=== PATIENT | female | born 1950 | race Caucasian/White ===

== ENCOUNTER → 2016-04-14 | Outpatient (CLI) | payer BC ==
--- NOTE | 2016-04-17 09:56 | MM ---
Reason for exam: screening (asymptomatic). Last mammogram was performed 1 year ago. History: Patient is postmenopausal and has history of other cancer at age 35. Benign excisional biopsy of the right breast. Taking estrogen for 10 years 3 months beginning at age 49. Physical Findings: A clinical breast exam by your physician is recommended on an annual basis and results should be correlated with mammographic findings. MG Screening Mammo w CAD Bilateral CC and MLO view(s) were taken. Prior study comparison: April 12, 2015, bilateral MG screening mammo w CAD. February 16, 2014, bilateral MG diagnostic mammo w CAD CLAUDIA. The breast tissue is heterogeneously dense. This may lower the sensitivity of mammography. There is chronic nodularity bilaterally. There is no discrete abnormality. No significant changes when compared with prior studies. ASSESSMENT: Benign, BI-RAD 2 RECOMMENDATION: Routine screening mammogram of both breasts in 1 year. Manage patient on a clinical basis. Ultrasound if felt to be indicated clinically.
== END | disposition home or self-care (01) ==
LOC: RADMAMWWP 09:41
PROVIDERS: ATTEND Internal Medicine
DX: Z12.31 Encounter for screening mammogram for malignant neoplasm of breast (principal)

== ENCOUNTER → 2016-12-13 | Outpatient (CLI) | payer BC ==
--- NOTE | 2016-12-13 09:37 | XR ---
EXAMINATION TYPE: XR chest 2V DATE OF EXAM: 12/13/2016 COMPARISON: NONE TECHNIQUE: PA and lateral views submitted. HISTORY: Pain FINDINGS: The lungs are clear and there is no pneumothorax, pleural effusion, or focal pneumonia. There is mild prominence of the region of the ascending aorta. No overt failure. Arthropathy of the s houlders. Hypertrophic and degenerative change of the spine. IMPRESSION: 1. No acute process. Mild prominence of the region of the ascending aorta, correlate with CT scan to assess for aneurysm.
--- NOTE | 2016-12-13 12:46 | ECHOF ---
Referral Reason:R07.9 chest pain MEASUREMENTS -------- HEIGHT: 165.1 cm WEIGHT: 97.1 kg BP: 121/82 RVIDd: 2.7 cm (< 3.3) IVSd: 1.2 cm (0.6 - 1.1) LVIDd: 5.2 cm (3.9 - 5.3) LVPWd: 1.2 cm (0.6 - 1.1) IVSs: 1.3 cm LVIDs: 3.9 cm LVPWs: 1.7 cm LAESV Index (A-L): 19.74 ml/m Ao Diam: 3.0 cm (2.0 - 3.7) AV Cusp: 1.7 cm (1.5 - 2.6) LA Diam: 3.9 cm (2.7 - 3.8) MV EXCURSION: 15.965 mm (> 18.000) MV EF SLOPE: 65 mm/s (70 - 150) EPSS: 0.3 cm MV E Pérez: 0.84 m/s MV DecT: 320 ms MV A Pérez: 0.97 m/s MV E/A Ratio: 0.87 RAP: 5.00 mmHg RVSP: 15.39 mmHg FINDINGS -------- Sinus rhythm. This was a technically adequate study. The left ventricular size is normal. There is mild concentric left ventricular hypertrophy. Overall left ventricular systolic function is normal with, an EF between 55 - 60 %. The right ventricle is normal in size and function. Normal LA size by volume 22+/-6 ml/m2. The right atrium is normal in size. The aortic valve is trileaflet, and appears structurally normal. No aortic stenosis or regurgitation. The mitral valve leaflets are mildly thickened. There is trace mitral regurgitation. Trace tricuspid regurgitation present. Right ventricular systolic pressure is normal at < 35 mmHg. There is no evidence of pulmonary hypertension. The pulmonic valve is normal. The aortic root size is normal. Normal inferior vena cava with normal inspiratory collapse consistent with estimated right atrial pressure of 5 mmHg. The pericardium is normal. There is no pericardial effusion. CONCLUSIONS -------- 1. Sinus rhythm. 2. Trace tricuspid regurgitation present. 3. Right ventricular systolic pressure is normal at < 35 mmHg. 4. There is no evidence of pulmonary hypertension. 5. The aortic root size is normal. 6. There is no pericardial effusion. 7. This was a technically adequate study. 8. The left ventricular size is normal. 9. There is mild concentric left ventricular hypertrophy. 10. Overall left ventricular systolic function is normal with, an EF between 55 - 60 %. 11. Normal LA size by volume 22+/-6 ml/m2. 12. The aortic valve is trileaflet, and appears structurally normal. No aortic stenosis or regurgitation. 13. The mitral valve leaflets are mildly thickened. 14. There is trace mitral regurgitation. BOARD HANDLER: Messi Brody RDCS
== END | disposition home or self-care (01) ==
LOC: RADECHMAIN 08:36
PROVIDERS: ATTEND Internal Medicine
DX: R07.9 Chest pain, unspecified (principal); I08.1 Rheumatic disorders of both mitral and tricuspid valves
CPT/HCPCS: 71020; 93306

== ENCOUNTER → 2017-04-30 | Outpatient (CLI) | payer BC ==
--- NOTE | 2017-05-01 11:41 | MM ---
Reason for exam: screening (asymptomatic). Last mammogram was performed 1 year and 1 month ago. History: Patient is postmenopausal and has history of other cancer at age 35. Benign excisional biopsy of the right breast. Taking estrogen for 10 years 3 months beginning at age 49. Physical Findings: A clinical breast exam by your physician is recommended on an annual basis and results should be correlated with mammographic findings. MG Screening Mammo w CAD Bilateral CC and MLO view(s) were taken. Prior study comparison: April 14, 2016, bilateral MG screening mammo w CAD. April 12, 2015, bilateral MG screening mammo w CAD. There are scattered fibroglandular densities. Stable benign calcifications. There is no discrete abnormality. No significant changes when compared with prior studies. ASSESSMENT: Benign, BI-RAD 2 RECOMMENDATION: Routine screening mammogram of both breasts in 1 year.
== END | disposition home or self-care (01) ==
LOC: RADMAMWWP 07:39
PROVIDERS: ATTEND Internal Medicine
DX: Z12.31 Encounter for screening mammogram for malignant neoplasm of breast (principal)
CPT/HCPCS: 77067

== ENCOUNTER → 2018-05-31 | Outpatient (CLI) | payer BC ==
--- NOTE | 2018-06-04 08:59 | MM ---
Reason for exam: screening (asymptomatic). Last mammogram was performed 1 year and 1 month ago. History: Patient is postmenopausal and has history of other cancer at age 35. Benign excisional biopsy of the right breast. Taking estrogen for 10 years 3 months beginning at age 49. Physical Findings: A clinical breast exam by your physician is recommended on an annual basis and results should be correlated with mammographic findings. MG 3D Screening Mammo W/Cad Bilateral CC and MLO view(s) were taken. Prior study comparison: April 30, 2017, bilateral MG screening mammo w CAD. April 14, 2016, bilateral MG screening mammo w CAD. The breast tissue is heterogeneously dense. This may lower the sensitivity of mammography. Regional punctate calcifications redemonstrated right breast. No significant changes when compared with prior studies. ASSESSMENT: Benign, BI-RAD 2 RECOMMENDATION: Routine screening mammogram of both breasts in 1 year.
== END | disposition home or self-care (01) ==
LOC: RADMAMWWP 10:31
PROVIDERS: ATTEND Internal Medicine
DX: Z12.31 Encounter for screening mammogram for malignant neoplasm of breast (principal)
CPT/HCPCS: 77063; 77067

== ENCOUNTER → 2019-11-28 | Outpatient (CLI) | payer MEDICARE ==
[2019-11-28 14:40] LABS: HCT 40.8 % (34.0-46.0); HGB 13.2 gm/dL (11.4-16.0); MCH 28.9 pg (25.0-35.0); MCHC 32.4 g/dL (31.0-37.0); MCV 89.3 fL (80.0-100.0); Mean Platelet Volume 6.6; Platelet Count 293 k/uL (150-450); RBC 4.57 m/uL (3.80-5.40); RDW 13.5 % (11.5-15.5); WBC 6.3 k/uL (3.8-10.6)
[2019-11-28 14:43] LABS: ALT 7 U/L (4-34); AST 22 U/L (14-36); African American GFR (CKD) >90 (>60 ml/min/1.73 sqM); Albumin 4.3 g/dL (3.5-5.0); Alkaline Phosphatase 97 U/L (38-126); Anion Gap 7 mmol/L; Blood Urea Nitrogen 19 mg/dL (7-17); Calcium 9.5 mg/dL (8.4-10.2); Carbon Dioxide 27 mmol/L (22-30); Chloride 107 mmol/L (98-107); Glucose 94 mg/dL (74-99); Non-African American GFR(CKD) >90 (>60 ml/min/1.73 sqM); Potassium 4.6 mmol/L (3.5-5.1); Sodium 141 mmol/L (137-145); Total Bilirubin 0.4 mg/dL (0.2-1.3); Total Protein 6.7 g/dL (6.3-8.2)
[2019-11-28 14:51] LABS: Amorphous Sediment,Urine Few /hpf; Appearance,Urine Cloudy (Clear); Bacteria,Urine Occasional /hpf; Bilirubin,Urine Negative (Negative); Blood,Urine Negative (Negative); Color,Urine Yellow; Glucose,Urine (UA) Negative (Negative); Ketones,Urine Negative (Negative); Leukocyte Esterase,Urine Trace (Negative); Mucus,Urine Many /hpf; Nitrite,Urine Negative (Negative); Protein,Urine Trace (Negative); Specific Gravity,Urine 1.032 (1.001-1.035); Squamous Epithelial Cell,Urine 22 /hpf (0-4); Urobilinogen,Urine <2.0 mg/dL (<2.0); WBC,Urine 16 /hpf (0-5)
[2019-11-28 15:05] LABS: INR 0.9 (<1.2); Partial Thromboplastin Time 23.4 sec (22.0-30.0); Prothrombin Time 9.6 sec (9.0-12.0)
== END | disposition home or self-care (01) ==
LOC: LABPAT 13:38
PROVIDERS: ATTEND Orthopaedic Surgery Sports Medicine
DX: Z01.818 Encounter for other preprocedural examination (principal); M19.079 Primary osteoarthritis, unspecified ankle and foot; Z79.01 Long term (current) use of anticoagulants; Z01.812 Encounter for preprocedural laboratory examination
CPT/HCPCS: 36415; 80053; 81001; 85027; 85610; 85730; 87070

== ENCOUNTER 2019-12-11 07:36 | Observation (INO) | payer MEDICARE ==
[2019-12-10 08:45] VITALS: BMI 33.1
[~2019-12-11 07:36] MED LIST: ACETAMINOPHEN TAB 500 MG TAB PO ONE; GABAPENTIN 300 MG CAP PO ONE; HYDROmorphone 0.5 MG/0.5 ML SYRINGE IVP PRN; LACTATED RINGERS 1,000 ML IV SCH; LIDOCAINE 1% (10MG/ML) FOR IV START INTRADERMA PRN; MELOXICAM 7.5 MG TAB PO ONE; ONDANSETRON 4 MG/2 ML VIAL IVP ONE; ONDANSETRON 4 MG/2 ML VIAL IVP PRN; TRANEXAMIC ACID 1,000 MG in SODIUM CHLORIDE 0.9% 100 ML IVPB ONE; VANCOMYCIN 1,250 MG in SODIUM CHLORIDE 0.9% 250 ML IVPB ONE
[2019-12-11] MEDS ORDERED: fentaNYL (PF) 50 MCG/ML 2 ML AMP IVP ONE (08:40)
[2019-12-11] MEDS ORDERED: MIDAZOLAM 2 MG/2 ML VIAL IVP ONE (08:40)
[2019-12-11] MEDS ORDERED: ONDANSETRON 4 MG/2 ML VIAL IVP ONE (09:05)
[2019-12-11] MEDS ORDERED: DEXAMETHASONE SOD PHOSPHATE 10 MG/ML 1 ML VIAL IV ONE (09:06)
--- NOTE | 2019-12-11 09:07 | P.ANPRN ---
Procedure Note - Anesthesia - Nerve Block Performed Right Adductor Canal Infusion Time Out Performed: Yes ([id number]) Date of Procedure: 12/11/19 Procedure Start Time: 08:36 Procedure Stop Time: 08:42 Location of Patient: PreOp Indication: Acute Post-Operative Pain, Requested by Surgeon Specifically requested for management of pain by DrGanesh: Carlos Manuel Wilson Sedation Type: Sedate with meaningful contact maintained Preparation: Sterile Prep Position: Supine Catheter Depth at Skin (cm): 10 Catheter: Indwelling Needle Types: Pajunk Needle Gauge: 21 Ultrasound used to visualize needle placement: Yes Ultrasound used to observe medication spread: Yes Injectate: 0.5% Ropivacaine (see comment for volume) (20cc) Blood Aspirated: No Pain Paresthesia on Injection Noted: No Resistance on Injection: Normal Image Stored and Saved: Yes Events: Uneventful and Well Tolerated
[2019-12-11] MEDS ORDERED: PROPOFOL 10 MG/ML 20 ML VIAL IV ONE (09:20)
[2019-12-11] MEDS ORDERED: SODIUM CHLORIDE 0.9% 100 ML BAG ONE (09:20)
[2019-12-11] MEDS ORDERED: MIDAZOLAM 2 MG/2 ML VIAL ONE (09:20)
[2019-12-11] MEDS ORDERED: TRANEXAMIC ACID 1,000 MG/10 ML VIAL ONE (09:20)
[2019-12-11] MEDS ORDERED: fentaNYL (PF) 50 MCG/ML 2 ML AMP ONE (09:20)
[2019-12-11] MEDS ORDERED: ceFAZolin 3,000 MG in SODIUM CHLORIDE 0.9% IRRIGATIO 3,000 ML IRRIGATION ONE (10:01)
[2019-12-11] MEDS: ROPIVACAINE 246.25 MG, EPINEPHrine 0.5 MG, KETOROLAC 30 MG, cloNIDine HCL/PF 80 MCG, WA... MISCELLANE ONE ×10 (10:16→10:40)
[2019-12-11] MEDS ORDERED: ROPIVACAINE 0.2%-NS ON-Q PUMP 1,090 MG, EMPTY PAIN BALL 1 EACH MISCELLANE PRN (11:27)
[2019-12-11] MEDS ORDERED: ONDANSETRON 4 MG/2 ML VIAL IVP PRN (11:32)
[2019-12-11] MEDS ORDERED: MAGNESIUM HYDROXIDE 2,400 MG/10 ML CUP PO PRN (11:32)
[2019-12-11] MEDS ORDERED: TEMAZEPAM 15 MG CAP PO PRN (11:32)
[2019-12-11] MEDS ORDERED: HYDROmorphone 0.5 MG/0.5 ML SYRINGE IVP PRN ×2 (11:32)
[2019-12-11] MEDS ORDERED: HYDROcodone/APAP 10-325MG 1 EACH TAB PO PRN (11:32)
[2019-12-11] MEDS ORDERED: NA PHOS,M-B/NA PHOS,DI-BA 133 ML ENEMA RECTAL PRN (11:32)
[2019-12-11] MEDS ORDERED: hydrOXYzine pamoate 25 MG CAP PO PRN (11:32)
[2019-12-11] MEDS ORDERED: diazePAM 5 MG TAB PO PRN (11:32)
[2019-12-11] MEDS ORDERED: HYDROcodone/APAP 5-325MG 1 EACH TAB PO PRN (11:32)
[2019-12-11] MEDS ORDERED: bisacodyL 10 MG SUPP RECTAL PRN (11:32)
[2019-12-11] MEDS ORDERED: NALOXONE 0.4 MG/ML 1 ML VIAL IV PRN (11:32)
--- NOTE | 2019-12-11 12:05 | XR ---
EXAMINATION TYPE: XR knee limited RT DATE OF EXAM: 12/11/2019 CLINICAL HISTORY: Right knee pain and arthritis status post total knee replacement. TECHNIQUE: Portable AP and crosstable lateral views of the right knee are obtained immediately posto peratively. COMPARISON: None FINDINGS: Metallic hardware from total right knee arthroplasty is seen and appears satisfactory in a lignment and position. There is evidence of recent surgery with diffuse subcutaneous gas and soft ti ssue swelling noted. [place] osseous structures somewhat demineralized. IMPRESSION: METALLIC HARDWARE FROM TOTAL RIGHT KNEE ARTHROPLASTY IS SATISFACTORY IN ALIGNMENT.
[2019-12-11] MEDS ORDERED: LORazepam 0.5 MG TAB PO PRN (12:28)
[2019-12-11] MEDS: LACTATED RINGERS 1,000 ML IV SCH ×2 (12:38→22:19)
--- NOTE | 2019-12-11 12:48 | P.CONS ---
History of Present Illness - Reason for Consult Consult date: 12/11/19 (Post right total knee arthroplasty) Medical management. - History of Present Illness This is a dictation on consultation date of service 12/11/2019 Patient admitted to the hospital for elective right total knee arthroplasty by Dr. Carlos Manuel Wilson. Postoperative consult requested for medical management. Patient seen and evaluated and medication reviewed and adjusted postoperative. Patient had a spinal anesthesia with the tendency to have hypotension and headache and medication adjusted for that. Patient medical problem: #1 Parkinson disease. #2 underlying depression #3 insomnia number for anxiety neurosis. #5 degenerative arthritis of the joint. #6 hypertension was hypertensive heart disease. Examination: Patient seen postoperative feeling much better, she had status post spinal anesthesia the recovery of her lower extremities still numb. On the examination the head was normocephalic and atraumatic pupils equal reactive oropharynx negative natural teeth Neck was supple no JVD no thyromegaly no lymphadenopathy trachea midline. Chest clear to auscultation percussion no wheezes no rhonchi's Heart regular sinus rhythm no arrhythmias. Abdomen soft positive bowel sounds, she had a bowel movement today. Post total knee arthroplasty The extremities right lower extremities with the Band-Aids and the and surgery protocol no edema with the ankle of the shaft and positive pulses. Left lower extremities no edema and positive pulses. Neuro examination grossly intact. Assessment: Reviewed all her medication and frequent sign. Some of the medication has been stopped to avoid hypotension postoperative. Whi ch would be resumed tomorrow when the patient back to her normal status after observation tonight. Anticoagulation failure the orthopedic surgeon. Plan continue the current medication and treatment and follow-up. Past Medical History Past Medical History: Cancer, Hyperlipidemia, Hypertension, Neurologic Disorder, Osteoarthritis (OA), Sleep Apnea/CPAP/BIPAP Additional Past Medical History / Comment(s): parkinsons, right hand tremor, uses CPAP, basal cell skin cancer years ago, urinary incontinence & frequency History of Any Multi-Drug Resistant Organisms: None Reported Past Surgical History: Breast Surgery, Hysterectomy, Orthopedic Surgery Additional Past Surgical History / Comment(s): daniel. carpel tunnel, colonoscopy, daniel shoulder surg., left knee arthroscopy, lipoma removed from back, oophorectomy, breast bx. Past Anesthesia/Blood Transfusion Reactions: Postoperative Nausea & Vomiting (PONV) Smoking Status: Never smoker - Past Family History Mother Family Medical History: No Reported History Medications and Allergies Home Medications Medication Instructions Recorded Confirmed Type Aspirin EC [Ecotrin] 81 mg PO DAILY 10/03/15 12/09/19 History Atorvastatin [Lipitor] 40 mg PO HS 10/03/15 12/09/19 History Carbidopa-Levodopa 25-100 mg 1 each PO TID 10/03/15 12/11/19 History [Sinemet 25-100] LORazepam [Ativan] 0.5 mg PO BID PRN 10/03/15 12/09/19 History Losartan Potassium [Cozaar] 100 mg PO DAILY 10/03/15 12/11/19 History Venlafaxine HCl ER [Effexor Xr] 225 mg PO QAM 10/03/15 12/11/19 History amLODIPine BESYLATE [Norvasc] 2.5 mg PO HS 10/03/15 12/09/19 History Cannabidiol (Cbd) [Epidiolex] 0 mg PO DIRECTED PRN 12/09/19 12/09/19 History Cholecalciferol [Vitamin D3 (25 5,000 unit PO DAILY 12/09/19 12/09/19 History Mcg = 1000 Iu)] Polyethylene Glycol 3350 [Miralax] 17 gm PO DAILY 12/09/19 12/09/19 History QUEtiapine [SEROquel] 200 mg PO HS 12/09/19 12/09/19 History Solifenacin Succinate [Vesicare] 5 mg PO BID 12/09/19 12/11/19 History Turmeric Root Extract [Turmeric] 500 mg PO HS 12/09/19 12/09/19 History Vitamin B Complex 1 each PO HS 12/09/19 12/09/19 History buPROPion HCL [Wellbutrin XL] 150 mg PO DAILY 12/09/19 12/11/19 History Allergies Allergy/AdvReac Type Severity Reaction Status Date / Time erythromycin base Allergy Nausea & Verified 12/11/19 07:58 Vomiting hydrocodone [From Vicodin] Allergy Hallucinati Verified 12/11/19 07:58 ons codeine AdvReac upset Verified 12/11/19 07:58 stomach Physical Exam Vitals: Vital Signs Temp Pulse Resp BP Pulse Ox 12/11/19 11:56 76 18 111/62 96 12/11/19 11:41 74 16 111/58 96 12/11/19 11:26 99.1 F 79 16 120/59 96 12/11/19 08:57 71 16 106/61 98 12/11/19 08:03 98.1 F 75 16 125/75 97 Intake and Output 12/10/19 12/11/19 12/11/19 22:59 06:59 14:59 Intake Total 701 Output Total 100 Balance 601 Intake: IV 701 Output: Estimated Blood Loss 100 Other: Weight 92.9 kg
[2019-12-11] MEDS: CARBIDOPA-LEVODOPA 25-100 MG 1 EACH TAB PO SCH ×2 (16:18→22:19)
--- NOTE | 2019-12-11 16:49 | OP ---
OPERATIVE REPORT DATE OF PROCEDURE: 12/11/2019 SURGEON: Carlos Manuel Wilson MD FIELD SERVICE POULTRY TECHNICIAN: Ubaldo RONQUILLO. PREOPERATIVE DIAGNOSIS: Right knee osteoarthrosis. POSTOPERATIVE DIAGNOSIS: Right knee osteoarthrosis. OPERATION: Right total knee arthroplasty. ANESTHESIA: Spinal with sedation. ESTIMATED BLOOD LOSS: 100 mL. TOURNIQUET: Tourniquet time was 45 minutes at 250 mmHg. COMPLICATIONS: None apparent. DRAINS: None. DISPOSITION: Postanesthesia care unit. INDICATIONS: Ashleigh is a very pleasant 69-year-old female with longstanding history of right knee pain. History and physical examination are consistent with advanced right knee osteoarthrosis. She has been through significant nonoperative management up to this point. Further treatment options were discussed and she has decided to go for the right total knee arthroplasty. The risks of procedure were discussed with her in detail. These risks include, but are not limited to risk of infection, nerve damage, bleeding, pain, and a small risk of deep vein thrombosis which could lead to fatal pulmonary embolism. There is also risk of loosening of the implant which could require revision operation. The patient understands these risks. All of her questions were answered to her satisfaction. An appropriate informed consent was obtained. DESCRIPTION OF PROCEDURE: Patient was identified in preoperative holding area. Surgical site was marked by both the patient and myself. She was given 2 g of Ancef IV for prophylactic purposes. She was then transferred to the operative suite. She was placed supine on the operative table. Spinal anesthetic was then administered, dosed per the Anesthesia Department without apparent complication. Examination under anesthesia was then performed. She was 2-3 degrees shy of full extension. She had 100 degrees of flexion. The medial collateral ligament, lateral collateral ligament, and posterior cruciate ligaments were stable. Tourniquet was then placed high on the right upper thigh, well-padded in preparation for surgery. The patient's right lower extremity was then prepped and draped in usual sterile fashion. Standard surgical pause undertaken to ensure that we were operating on the correct site and that appropriate preop antibiotics have been given. All staff in the room were in agreement, we proceeded. The outlines of the patella marked with surgical pen. A planned 12 cm vertical incision centered over the patella was marked surgical pen and the leg was then exsanguinated with an Esmarch dressing. The knee was then flexed and tourniquet was inflated to 250 mmHg. The total tourniquet time for the procedure was 45 minutes. Incision was then made with a 10 blade scalpel. Dissection was carried down sharply overlying fascia. Great care was taken to minimize the skin flaps. The knee was then exposed using a standard medial parapatellar approach. A small cuff of quadriceps tendon was then left for suturing. She was in a mild amount of valgus preoperatively. A very minimal medial release was done. This was just done enough for placement to medial retractor placement to protect the medial collateral ligament. The medial meniscus was then excised as well. The lateral meniscus was also released anteriorly. The leg was then externally rotated. The patella was everted. The knee was flexed, the retractors was then placed to protect the collateral ligaments. I then proceeded to remove the infrapatellar fat pad. This was excised sharply tangentially with fibers of the patellar tendon. I then proceeded to remove peripheral osteophytes. This is done with a rongeur. I then proceeded with the distal femoral resection. She did have near full extension. A planned 9 mm resection was then done. The femoral canal was then entered in the midline of the femur approximately 10 mm anterior to the origin of the posterior cruciate ligament. The gardenia was then advanced down the center of the femur and placed intramedullary. Based on the preoperative radiographs, the angle between the anatomic and mechanical axis of the femur was approximately 4-5 degrees. The valgus angle of this femoral cutting guide was then set at 4 degrees for the right knee. The distal femoral cutting guide was then advanced over the intramedullary gardenia. This was seated firmly against the femur. I then as mentioned planned to take 9 mm off the distal femur. The cutting block was then secured onto the femur with pins. The jig was removed. The distal femoral cut was made through the slot of the block. The pins then removed. The distal femoral cutting block was removed. The accuracy of the distal femoral cuts was checked with 2 flat bars. I then proceeded with femoral sizing. The posterior referencing sizing guide was held firmly against the resected distal surface of the femur. The posterior condyles were resting on the posterior plane of the guide. The sizing stylus then placed on the anterior femur. The size was measured to a size 5. I then assessed for femoral rotation. The plan was for 3 degrees external rotation. Three degrees external rotation was placed onto the jig. These holes were then marked. I then confirmed the rotation by 3 separate methods. This done using epicondylar axis as well as Whitesides line and posterior referencing. It was deemed that the external rotation was proper. I then went forward placing the femoral cutting block. This was placed over the previously placed pin holes with the Ap wing was then placed on the anterior slots to ensure that we would not notch the anterior femur with the anterior femoral cut. I then proceed with the anterior femoral cut. This was flushed with the anterior cortex of the femur. The posterior cuts were then made followed by the anterior chamfer cut, then the posterior chamfer cut. The cutting block was then removed. Throughout the resection, the collateral ligaments were protected with retractors. I then placed a trial size 5 femur. It fit very nice medial-lateral and fit flush with the distal end of the femur. The drill holes were then made. I then proceed with the tibial cut. I planned for cruciate-retaining knee. The guide was placed and set for varus valgus and for slope. Height was set from for approximately 2 mm resection from the lateral tibial plateau which was the lower side. I was happy with the alignment and the amount of resection. The cutting block was then pinned to the proximal tibia. The alignment gardenia was removed and the proximal tibia was resected with a reciprocating saw. Again this was done with retractors protecting the collateral ligaments as well as the posterior cruciate ligament. I then proceeded to evaluate the flexion and extension gaps. A 10 mm block was then placed. The flexion-extension gaps were equal. I then proceeded with resection of posterior osteophytes. Very minimal posterior osteophytes. This is done using a curved osteotome. This resected the posterior osteophytes and posterior capsule stripping was done off the posterior aspect of the femur at this time. The osteophytes were then removed. I then proceeded with resection of the patella. The thickness of patella was measured using a caliper. Thickness was 22 mm. Thickness of the anticipated patellar dome was taken into account. Resection was then performed and confirmed to be equal in 4 quadrants using a caliper. Approximately 14 mm of bone remained after resection. A 29 x 8 standard patellar trial was then placed. The holes drilled. The trial was then placed. I then proceeded with sizing the tibial plate. A size D tibial plate fit very nicely. I then placed the trial femur, the tibial tray and patellar button. A 10 mm trial tibial insert was also placed. The components fit very nicely. She had full extension and flexion. The extension and flexion gaps were equal and stable to both varus and valgus stress. The tibial tray rotation was marked with a Bovie. This was externally rotated properly. I then proceed with tibial preparation. First drilled the femoral holes removed femoral component. The tibial tray was then set for proper external rotation as well as mediolateral placement of the tibia. It was then pinned into place. I then proceeded with punching the keel. I then decided to proceed with cementing of all our components. The knee was thoroughly irrigated with sterile saline solution via pulse lavage. The lateral geniculate artery was identified and cauterized. All blood was removed from the bone of the tibia, femur, and patella with pulse lavage. I then proceeded with cementing. Two packs of antibiotic bone cement were prepared on the back table by the certified surgical technologist. I then proceed with cementing the tibia first. Cement was impacted in the keel as well as deeply seated in the bone. A second coat of cement was then placed. The tibia was then impacted into place. Excess cement was removed with Josie's and Joker's. I then proceed with cementing of the femoral component. The femoral component was also cemented using standard technique. Excess cement was removed. A 10 mm trial insert was also placed into the knee. It was brought into full extension with contact and load placed until the cement had hardened. The trial component was then cemented. This was held with a compressive device until the cement had dried. When the cement had dried, the knee was taken out of extension. All excess cement was removed from around the prosthesis. I then trialed the knee with a 10 mm insert. The flexion-extension gaps were appropriate. The knee was stable with a 10 mm insert. It came into full extension. I decided to go for the 10 mm cross-linked cruciate- retaining tibial insert. Polyethylene was then placed on tibial tray and locked into place. The knee was then reduced. The knee was again further irrigated with sterile saline solution with antibiotic added. The tourniquet was then deflated. Total tourniquet time for the procedure was 45 minutes. The final components were Juan Persona size 5, cruciate-retaining femoral component size D tibial tray, a 10 mm medial congruent cruciate-retaining polyethylene insert, and a 29 x 8 patella. I then proceeded with closure. Again, the knee was thoroughly irrigated. The quadriceps and medial retinaculum were reapproximated with #2 Ethibond suture. The extensor mechanism was closed with a running #2 Quill suture. Subcutaneous tissues were closed with 2-0 Vicryl interrupted suture. The skin was closed with a running 3-0 Quill suture. Dermabond was applied to the incision. All sponge and needle counts were deemed correct prior to closure. The patient tolerated the procedure without apparent complication. She was transferred to the recovery room in stable condition. MMODL / IJN: [id number] /
[2019-12-11] MEDS: traMADol 50 MG TAB PO PRN (19:21)
[2019-12-11] MEDS ORDERED: NON FORMULARY DRUG (Vitamin B Complex [Vitamin B Complex] 1 EACH Capsule) PO SCH (21:00)
[2019-12-11] MEDS: SENNOSIDES-DOCUSATE SODIUM 1 EACH TAB PO SCH (21:14)
[2019-12-11] MEDS: ASPIRIN 81 MG PO SCH (21:14)
[2019-12-11] MEDS: ATORVASTATIN 40 MG TAB PO SCH (21:14)
[2019-12-11] MEDS: QUEtiapine 100 MG TAB PO SCH (21:15)
[2019-12-11] MEDS: ACETAMINOPHEN TAB 325 MG TAB PO PRN (21:15)
[2019-12-12] MEDS: ACETAMINOPHEN TAB 325 MG TAB PO PRN ×3 (05:07→20:46)
[2019-12-12 07:05] LABS: Basophils % (A) 0 %; Eosinophils % (A) 0 %; HCT 34.7 % (34.0-46.0); HGB 11.6 gm/dL (11.4-16.0); Lymphocytes # (A) 1.9 k/uL (1.0-4.8); Lymphocytes % (A) 18 %; MCH 29.4 pg (25.0-35.0); MCHC 33.5 g/dL (31.0-37.0); Mean Platelet Volume 6.5; Monocytes # (A) 0.8 k/uL (0-1.0); Monocytes % (A) 7 %; Neutrophils # (A) 7.4 k/uL (1.3-7.7); Neutrophils % (A) 72 %; Platelet Count 227 k/uL (150-450); RBC 3.94 m/uL (3.80-5.40); RDW 13.3 % (11.5-15.5); WBC 10.2 k/uL (3.8-10.6)
[2019-12-12] MEDS: LACTATED RINGERS 1,000 ML IV SCH ×2 (07:45→11:37)
[2019-12-12] MEDS: ASPIRIN 81 MG PO SCH ×2 (09:06→20:46)
[2019-12-12] MEDS: CARBIDOPA-LEVODOPA 25-100 MG 1 EACH TAB PO SCH ×3 (09:06→20:47)
[2019-12-12] MEDS: LOSARTAN 50 MG TAB PO SCH (09:06)
--- NOTE | 2019-12-12 09:22 | P.PN ---
Subjective Progress Note Date: 12/12/19 Principal diagnosis: RTKA Patient is seen at bedside this morning. She is postop day #1 from right total knee arthroplasty. She has pain at the surgical site as expected but denies any new complaints. She denies numbness, tingling or calf pain. Review of systems is negative for fever, chills, chest pain, shortness of breath or other Objective - Vital Signs Vital signs: Vital Signs Temp 99.5 F 12/12/19 07:31 Pulse 78 12/12/19 07:31 Resp 16 12/12/19 07:31 BP 125/78 12/12/19 07:31 Pulse Ox 97 12/12/19 07:31 Intake & Output 12/11/19 12/12/19 12/12/19 18:59 06:59 18:59 Intake Total 1001 1250 Output Total 100 Balance 901 1250 Weight 92.9 kg Intake: IV 1001 Lactated Ringers 1,000 ml 300 @ 100 mls/hr IV .Q10H BRIANNA Rx#:[id number] Intake, IV Titration 1250 Amount Lactated Ringers 1,000 ml 1150 @ 100 mls/hr IV .Q10H BRIANNA Rx#:[id number] ceFAZolin 2 gm In Sodium 100 Chloride 0.9% 50 ml @ 100 mls/hr IVPB Q8H BRIANNA Rx#: [id number] Output: Estimated Blood Loss 100 Other: Voiding Method Toilet # Voids 2 - Exam Inspection reveals a benign surgical wound. There is no active bleeding or drainage. Neurovascular status is intact throughout the lower extremity with motor and sensation fully intact. Calf is soft and nontender. 2+ dorsalis pedis pulse and less than 2 second cap refill is present. - Constitutional General appearance: Present: no acute distress - Labs CBC & Chem 7: 12/12/19 06:36 Assessment and Plan (1) Status post total right knee replacement Narrative/Plan: She will continue with routine postop orthopedic protocol including pain management, wound care, PT, DVT prophylaxis and medical management. Expect that she will transfer to home tomorrow Current Visit: Yes Status: Acute Priority: Medium Code(s): Z96.651 - PRESENCE OF RIGHT ARTIFICIAL KNEE JOINT SNOMED Code(s): 8447566501709 Time with Patient: Less than 30
[2019-12-12] MEDS: traMADol 50 MG TAB PO PRN ×2 (09:46→19:28)
[2019-12-12] MEDS: MULTIVITAMINS, THERA 1 EACH TAB PO SCH (12:15)
--- NOTE | 2019-12-12 12:29 | P.PN ---
Subjective Progress Note Date: 12/12/19 (Temperature 99 low grade) Visit prior is not dictation by Dr. Frankel on 12/12/2019. Patient seen evaluated and apparently she had temperature 99 low grade elevation probably associated with the surgery and no evidence of infection. Patient is conscious alert oriented 3 and she thought that maybe he had hot flash. On the exam she is feeling great. And started to be on the chair, she told me that she will stay 1 day more by the orthopedic team. The head was normocephalic atraumatic pupil was equal reactive conjunctiva was pink sclera was nonicteric. Neck was supple no JVD no thyromegaly no lymphadenopathy trachea midline. Chest clear to auscultation percussion no wheezes no rhonchi's. Heart was regular sinus rhythm, vital signs stable. Abdomen soft positive bowel sounds and extremities no edema and the right knee was wrapped by the surgical team. Neurology: She had Parkinson disease and her medication continued but she is conscious alert oriented 3 Assessment: #1 low-grade temperature. #2 Parkinson disease #3 hypertension controlled. #4 status post right total knee arthroplasty by Dr. Carlos Manuel Wilson. Orthopedic surgeon. Plan: Continue the rehab dictation and the current treatment. Anticoagulation by the orthopedic team. Objective - Vital Signs Vital signs: Vital Signs Temp 99.5 F 12/12/19 07:31 Pulse 78 12/12/19 07:31 Resp 16 12/12/19 07:31 BP 125/78 12/12/19 07:31 Pulse Ox 97 12/12/19 07:31 Intake & Output 12/11/19 12/12/19 12/12/19 18:59 06:59 18:59 Intake Total 1001 1250 Output Total 100 Balance 901 1250 Weight 92.9 kg Intake: IV 1001 Lactated Ringers 1,000 ml 300 @ 100 mls/hr IV .Q10H BRIANNA Rx#:[id number] Intake, IV Titration 1250 Amount Lactated Ringers 1,000 ml 1150 @ 100 mls/hr IV .Q10H BRIANNA Rx#:[id number] ceFAZolin 2 gm In Sodium 100 Chloride 0.9% 50 ml @ 100 mls/hr IVPB Q8H BRIANNA Rx#: [id number] Output: Estimated Blood Loss 100 Other: Voiding Method Toilet # Voids 2 - Labs CBC & Chem 7: 12/12/19 06:36
[2019-12-12] MEDS: SENNOSIDES-DOCUSATE SODIUM 1 EACH TAB PO SCH (20:45)
[2019-12-12] MEDS: ATORVASTATIN 40 MG TAB PO SCH (20:47)
[2019-12-12] MEDS: QUEtiapine 100 MG TAB PO SCH (20:47)
[2019-12-12] MEDS: HYDROmorphone 0.5 MG/0.5 ML SYRINGE IVP PRN (22:03)
[2019-12-13 03:24] VITALS: PULSE 87
[2019-12-13] MEDS: LACTATED RINGERS 1,000 ML IV SCH (03:27)
[2019-12-13] MEDS: HYDROmorphone 0.5 MG/0.5 ML SYRINGE IVP PRN (06:16)
[2019-12-13] MEDS: ASPIRIN 81 MG PO SCH (08:35)
[2019-12-13] MEDS: LOSARTAN 50 MG TAB PO SCH (08:35)
[2019-12-13] MEDS: CARBIDOPA-LEVODOPA 25-100 MG 1 EACH TAB PO SCH (08:36)
[2019-12-13 08:44] VITALS: BP 157/89; RESP 18; TEMP 98.4
[2019-12-13] MEDS: traMADol 50 MG TAB PO PRN (08:48)
[2019-12-13] MEDS ORDERED: KETOROLAC 15 MG/ML 1 ML VIAL IVP STA (10:41)
--- NOTE | 2019-12-13 10:46 | P.DS ---
Providers Date of admission: 12/12/19 10:47 Expected date of discharge: 12/13/19 Attending physician: Carlos Manuel Wilson Consults: 12/11/19 11:32 Consult Physician Routine Consulting Provider: Magdy Burgess Reason/Comments: post op medical management Do you want consulting provider notified?: Yes Primary care physician: Magdy Burgess - Discharge Diagnosis(es) (1) Osteoarthritis of right knee Current Visit: Yes Status: Acute (2) Status post total right knee replacement Current Visit: Yes Status: Acute Priority: Medium Hospital Course: This is a 69 -year-old female who was last seen with complaint of continued right knee pain. The patient has a known history of degenerative arthritis of the right knee and presents to discuss surgical options. After discussion and consideration the patient elects to proceed with total right knee arthroplasty. The patient is seen preoperatively by her primary care physician and cleared for surgery. The patient is admitted to [facility] for total right knee arthroplasty. The procedures performed without complication or sequelae. Patient is doing well postoperatively. Vital signs are stable at discharge. Labs are stable at discharge. the patient is ambulating well with walker with minimal assistance. she had increased pain on postoperative day 2. Mobic and Vistaril were added to her medications. The patient is discharged to home on postop day #2 pending medical clearance. Please see orders and refer to the [facility] rec for accurate list of medications. Plan - Discharge Summary Discharge Rx Participant: Yes New Discharge Prescriptions: New Aspirin [Adult Low Dose Aspirin EC] 81 mg PO BID #60 tablet. traMADol HCL [Ultram] 50 mg PO Q4HR PRN #42 tab PRN Reason: Pain Meloxicam [Mobic] 1 - 2 tab PO DAILY PRN #30 tab PRN Reason: Pain hydrOXYzine pamoate [Vistaril] 25 mg PO Q4-6H #30 capsule No Action Carbidopa-Levodopa 25-100 mg [Sinemet 25-100] 1 each PO TID amLODIPine BESYLATE [Norvasc] 2.5 mg PO HS LORazepam [Ativan] 0.5 mg PO BID PRN PRN Reason: Anxiety Atorvastatin [Lipitor] 40 mg PO HS Venlafaxine HCl ER [Effexor Xr] 225 mg PO QAM Losartan Potassium [Cozaar] 100 mg PO DAILY Aspirin EC [Ecotrin] 81 mg PO DAILY buPROPion HCL [Wellbutrin XL] 150 mg PO DAILY QUEtiapine [SEROquel] 200 mg PO HS Cholecalciferol [Vitamin D3 (25 Mcg = 1000 Iu)] 5,000 unit PO DAILY Vitamin B Complex 1 each PO HS Turmeric Root Extract [Turmeric] 500 mg PO HS Solifenacin Succinate [Vesicare] 5 mg PO BID Polyethylene Glycol 3350 [Miralax] 17 gm PO DAILY Cannabidiol (Cbd) [Epidiolex] 0 mg PO DIRECTED PRN PRN Reason: Pain Discharge Medication List Aspirin EC [Ecotrin] 81 mg PO DAILY 10/03/15 [History] Atorvastatin [Lipitor] 40 mg PO HS 10/03/15 [History] Carbidopa-Levodopa 25-100 mg [Sinemet 25-100] 1 each PO TID 10/03/15 [History] LORazepam [Ativan] 0.5 mg PO BID PRN 10/03/15 [History] Losartan Potassium [Cozaar] 100 mg PO DAILY 10/03/15 [History] Venlafaxine HCl ER [Effexor Xr] 225 mg PO QAM 10/03/15 [History] amLODIPine BESYLATE [Norvasc] 2.5 mg PO HS 10/03/15 [History] Cannabidiol (Cbd) [Epidiolex] 0 mg PO DIRECTED PRN 12/09/19 [History] Cholecalciferol [Vitamin D3 (25 Mcg = 1000 Iu)] 5,000 unit PO DAILY 12/09/19 [History] Polyethylene Glycol 3350 [Miralax] 17 gm PO DAILY 12/09/19 [History] QUEtiapine [SEROquel] 200 mg PO HS 12/09/19 [History] Solifenacin Succinate [Vesicare] 5 mg PO BID 12/09/19 [History] Turmeric Root Extract [Turmeric] 500 mg PO HS 12/09/19 [History] Vitamin B Complex 1 each PO HS 12/09/19 [History] buPROPion HCL [Wellbutrin XL] 150 mg PO DAILY 12/09/19 [History] Aspirin [Adult Low Dose Aspirin EC] 81 mg PO BID #60 tablet. 12/12/19 [Rx] traMADol HCL [Ultram] 50 mg PO Q4HR PRN #42 tab 12/12/19 [Rx] Meloxicam [Mobic] 1 - 2 tab PO DAILY PRN #30 tab 12/13/19 [Rx] hydrOXYzine pamoate [Vistaril] 25 mg PO Q4-6H #30 capsule 12/13/19 [Rx] Follow up Appointment(s)/Referral(s): [facility], [NON-STAFF] - Carlos Manuel Wilson MD [STAFF PHYSICIAN] - 10 Days Activity/Diet/Wound Care/Special Instructions: Keep wound clean and dry Take meds as directed Follow-up with Dr. Wilson in office Weight bear as tolerated May shower in 3 days if no bleeding
[2019-12-13] MEDS: MULTIVITAMINS, THERA 1 EACH TAB PO SCH (11:36)
--- NOTE | 2019-12-13 12:39 | P.PN ---
Subjective Progress Note Date: 12/13/19 Visit progress note on date of service 12/13/2019. Dictation by Dr. Frankel. Patient status post right total knee arthroplasty. Patient did well and discharged by the orthopedic service. Vital sign to mature 98.4 pulse 87 respiratory rate 18 blood pressure 157/89 with a pulse ox 96% Lost laboratory her CBC was indicating white count 10.2 with a hemoglobin 11.6 and hematocrit 34.7. On discharge physical exam Head was normocephalic and atraumatic Normal oropharynx Neck was supple no JVD no thyromegaly no lymphadenopathy trachea midline. Chest was clear to auscultation percussion Heart was regular sinus rhythm. Abdomen soft positive bowel sounds Extremities no edema with the underlying right total knee arthroplasty by Dr. Carlos Manuel Wislon. Neuropsychiatry stable Assessment History of Parkinson disease to continue medication. History of hypertension to continue home medication. Pain medication for her the orthopedic however she has ALLERGY to codeine and hydrocodone and azithromycin antibiotic. Patient stable general condition for discharge Follow-up in one week post discharge home . Objective - Vital Signs Vital signs: Vital Signs Temp 98.4 F 12/13/19 08:43 Pulse 87 12/13/19 08:43 Resp 18 12/13/19 08:43 BP 157/89 12/13/19 08:43 Pulse Ox 96 12/13/19 08:43 Intake & Output 12/12/19 12/13/19 12/13/19 18:59 06:59 18:59 Intake Total 100 Balance 100 Intake: Oral 100 Other: Voiding Method Toilet Toilet # Voids 2 1 - Labs CBC & Chem 7: 12/12/19 06:36
== END 2019-12-13 14:15 | disposition home or self-care (01) ==
LOC: OR 07:36 → 4SSUR 11:24 → OR 12-12 10:47 → 4SSUR 12-12 10:47
PROVIDERS: ADMIT Orthopaedic Surgery Sports Medicine; ATTEND Orthopaedic Surgery Sports Medicine
DX: M17.0 Bilateral primary osteoarthritis of knee (principal); M21.061 Valgus deformity, not elsewhere classified, right knee; M25.761 Osteophyte, right knee; G20 Parkinson's disease; E05.90 Thyrotoxicosis, unspecified without thyrotoxic crisis or storm; F32.9 Major depressive disorder, single episode, unspecified; G47.00 Insomnia, unspecified; F41.1 Generalized anxiety disorder; I11.9 Hypertensive heart disease without heart failure; E78.5 Hyperlipidemia, unspecified; G47.33 Obstructive sleep apnea (adult) (pediatric); R50.9 Fever, unspecified; Z88.5 Allergy status to narcotic agent; Z88.1 Allergy status to other antibiotic agents; Z79.899 Other long term (current) drug therapy; Z79.82 Long term (current) use of aspirin; Z98.890 Other specified postprocedural states; Z90.710 Acquired absence of both cervix and uterus; Z90.79 Acquired absence of other genital organ(s); Z87.440 Personal history of urinary (tract) infections; Z99.89 Dependence on other enabling machines and devices; Z85.828 Personal history of other malignant neoplasm of skin; Z86.69 Personal history of other diseases of the nervous system and sense organs; Z91.89 Other specified personal risk factors, not elsewhere classified
CPT/HCPCS: 97116 ×2; 97110; 97162; 64448; 76942; 85025; 88300; 73560; 27447; G0378 ×2; C1776; C1713; J2250; J0171; J3370; J1100; J0690 ×3; J2405; J3010; J1885 ×2; J2795 ×2; J2704; J0735; J1170 ×2

== ENCOUNTER → 2020-11-16 | Outpatient (CLI) | payer MEDICARE ==
--- NOTE | 2020-11-17 13:50 | MM ---
Reason for exam: screening (asymptomatic). Last mammogram was performed 1 year ago. History: Patient is postmenopausal and has history of other cancer at age 35. Benign excisional biopsy of the right breast. Took estrogen for 10 years 3 months beginning at age 49. Physical Findings: A clinical breast exam by your physician is recommended on an annual basis and results should be correlated with mammographic findings. MG 3D Screening Mammo W/Cad Bilateral CC and MLO view(s) were taken. Prior study comparison: November 12, 2019, bilateral MG screening mammo w CAD. May 31, 2018, bilateral MG 3d screening mammo w/cad. The breast tissue is heterogeneously dense. This may lower the sensitivity of mammography. Stable benign calcifications. There is no discrete abnormality. No significant changes when compared with prior studies. ASSESSMENT: Benign, BI-RAD 2 RECOMMENDATION: Routine screening mammogram of both breasts in 1 year.
== END | disposition home or self-care (01) ==
LOC: RADMAMWWP 08:55
PROVIDERS: ATTEND Internal Medicine
DX: Z12.31 Encounter for screening mammogram for malignant neoplasm of breast (principal); Z78.0 Asymptomatic menopausal state; Z85.9 Personal history of malignant neoplasm, unspecified; Z79.818 Long term (current) use of other agents affecting estrogen receptors and estrogen levels
CPT/HCPCS: 77063; 77067

== ENCOUNTER → 2021-11-17 | Outpatient (CLI) | payer MEDICARE ==
--- NOTE | 2021-11-17 13:12 | MM ---
Reason for Exam: Screening (asymptomatic). Last mammogram was performed 1 year(s) and 1 month(s) ago. Patient History: Menarche at age 15. First Full-Term at age 24. Left ovary removed at age 52. Right ovary removed at age 52. Hysterectomy at age 47. Postmenopausal. Patient has history of breast feeding. Estrogen for 10 years, 3 months, from age 49 until age 59. Benign Excisional Biopsy on the right side. Risk Values: Anna 5 year model risk: 1.8%. NCI Lifetime model risk: 5.6%. Prior Study Comparison: 05/31/2018 Bilateral Screening Mammogram, [facility]. 11/12/2019 Bilateral Screening Mammogram, [facility]. 11/16/2020 Bilateral Screening Mammogram, [facility]. Tissue Density: The breast tissue is heterogeneously dense. This may lower the sensitivity of mammography. Findings: Analyzed By CAD. Some scattered and loosely grouped small benign-appearing round calcifications bilaterally are redemonstrated. Prominent but benign-appearing right axillary lymph node unchanged from 2020 mammogram. There is no suspicious new distortion or new suspicious mass in either breast. Overall Assessment: Benign, BI-RAD 2 Management: Screening Mammogram of both breasts in 1 year. Some advise bilateral breast ultrasound surveillance in patient's with background dense tissue. A clinical breast exam by your physician is recommended on an annual basis and results should be correlated with mammographic findings. Electronically signed and approved by: Ramesh Quiroz M.D.
== END | disposition home or self-care (01) ==
LOC: RADMAMWWP 09:43
PROVIDERS: ATTEND Internal Medicine
DX: Z12.31 Encounter for screening mammogram for malignant neoplasm of breast (principal); Z78.0 Asymptomatic menopausal state; Z90.710 Acquired absence of both cervix and uterus; Z98.890 Other specified postprocedural states
CPT/HCPCS: 77063; 77067

== ENCOUNTER → 2022-11-21 | Outpatient (CLI) | payer MEDICARE ==
--- NOTE | 2022-11-22 08:26 | MM ---
Reason for Exam: Screening (asymptomatic). Last screening mammogram was performed 12 month(s) ago. Patient History: Menarche at age 15. First Full-Term at age 24. Left ovary removed at age 52. Right ovary removed at age 52. Hysterectomy at age 47. Postmenopausal. Patient has history of breast feeding. Estrogen for 10 years, 3 months, from age 49 until age 59. Benign Excisional Biopsy on the right side. Risk Values: Anna 5 year model risk: 1.8%. NCI Lifetime model risk: 5.3%. Prior Study Comparison: 11/12/2019 Bilateral Screening Mammogram, [facility]. 11/16/2020 Bilateral Screening Mammogram, [facility]. 11/17/2021 Bilateral MG 3D screening mammo w/cad, [facility]. Tissue Density: The breast tissue is heterogeneously dense. This may lower the sensitivity of mammography. Findings: Analyzed By CAD. There is no suspicious group of microcalcifications or new suspicious mass in either breast. Benign-appearing calcifications redemonstrated. Overall Assessment: Benign, BI-RAD 2 Management: Screening Mammogram of both breasts in 1 year. A clinical breast exam by your physician is recommended on an annual basis and results should be correlated with mammographic findings. Note on Anna scores and lifetime risk: 1. A Anna score greater than 3% is considered moderate risk. If this is the case, consider specialist referral to assess eligibility for a risk reducing agent. If overall lifetime risk for the development of breast cancer is 20% or higher, the patient may qualify for future screening with alternating mammogram and breast MRI. Electronically signed and approved by: Jeffy Bailey D.O.
== END | disposition home or self-care (01) ==
LOC: RADMAMWWP 10:09
PROVIDERS: ATTEND Internal Medicine
DX: Z12.31 Encounter for screening mammogram for malignant neoplasm of breast (principal); Z78.0 Asymptomatic menopausal state
CPT/HCPCS: 77063; 77067

== ENCOUNTER → 2023-07-19 | Outpatient (CLI) | payer MEDICARE ==
--- NOTE | 2023-07-19 10:00 | XR ---
EXAMINATION TYPE: XR foot complete RT DATE OF EXAM: 07/19/2023 COMPARISON: NONE HISTORY: Pain TECHNIQUE: Three views are submitted. FINDINGS: There is a oblique fracture through the shaft proximal phalanx fourth digit. Assessment of the distal margin of the phalanges limited due to positioning. Hypertrophic arthropathy first MTP. Cortical thi ckening of the second and third metatarsals. Large calcaneal spurs. Hammertoe deformities noted. Beyer ux valgus deformity noted. IMPRESSION: 1. Mildly displaced fracture proximal phalanx fourth digit.
--- NOTE | 2023-07-19 10:00 | XR ---
EXAMINATION TYPE: XR toes RT DATE OF EXAM: 07/19/2023 COMPARISON: NONE HISTORY: Pain TECHNIQUE: Three views are submitted. FINDINGS: There is a oblique fracture through the shaft proximal phalanx fourth digit. Assessment of the distal margin of the phalanges limited due to positioning. Hypertrophic arthropathy first MTP. Cortical thi ckening of the second and third metatarsals. Large calcaneal spurs. Hammertoe deformities noted. Beyer ux valgus deformity noted. IMPRESSION: 1. Mildly displaced fracture proximal phalanx fourth digit.
== END | disposition home or self-care (01) ==
LOC: RADXRMAIN 09:29
PROVIDERS: ATTEND Internal Medicine
DX: M24.874 Other specific joint derangements of right foot, not elsewhere classified (principal); R22.41 Localized swelling, mass and lump, right lower limb

== ENCOUNTER → 2023-12-18 | Outpatient (CLI) | payer MEDICARE ==
--- NOTE | 2023-12-18 10:59 | MM ---
Reason for Exam: Clinical finding. Last mammogram was performed 1 year(s) and 1 month(s) ago. Patient History: Menarche at age 15. First Full-Term at age 24. Left ovary removed at age 52. Right ovary removed at age 52. Hysterectomy at age 47. Postmenopausal. Patient has history of breast feeding. Estrogen for 10 years, 3 months, from age 49 until age 59. Benign Excisional Biopsy on the right side. Risk Values: Anna 5 year model risk: 1.8%. NCI Lifetime model risk: 5.1%. Prior Study Comparison: 05/31/2018 Bilateral Screening Mammogram, [facility]. 11/12/2019 Bilateral Screening Mammogram, [facility]. 11/16/2020 Bilateral Screening Mammogram, [facility]. 11/17/2021 Bilateral MG 3D screening mammo w/cad, [facility]. 11/21/2022 Bilateral MG 3D screening mammo w/cad, [facility]. Tissue Density: The breasts are heterogeneously dense, which may obscure small masses. Findings: Analyzed By CAD. There appears to be 1.4 cm spiculated mass at the left 12:00 position 5.5 cm from the nipple. Ultrasound is recommended. No additional masses are seen. No suspicious microcalcifications. Overall Assessment: Incomplete: need additional imaging evaluation, BI-RAD 0 Management: Diagnostic Breast Ultrasound of the left breast. . Results were given to the patient verbally at the time of exam. Patient should continue monthly self-breast exams. A clinical breast exam by your physician is recommended on an annual basis. This exam should not preclude additional follow-up of suspicious palpable abnormalities. Note on Anna scores and lifetime risk: 1. A Anna score greater than 3% is considered moderate risk. If this is the case, consider specialist referral to assess eligibility for a risk reducing agent. 2. If overall lifetime risk for the development of breast cancer is 20% or higher, the patient may qualify for future screening with alternating mammogram and breast MRI. [facility], , 12/18/2023 10:56 AM. Electronically signed and approved by: Kane Schreiber M.D. Radiologis
--- NOTE | 2023-12-18 11:31 | USB ---
Reason for Exam: Clinical finding. Patient History: Menarche at age 15. First Full-Term at age 24. Left ovary removed at age 52. Right ovary removed at age 52. Hysterectomy at age 47. Postmenopausal. Patient has history of breast feeding. Estrogen for 10 years, 3 months, from age 49 until age 59. Benign Excisional Biopsy on the right side. Risk Values: Anna 5 year model risk: 1.8%. NCI Lifetime model risk: 5.1%. Technique: Method: Targeted. Prior Study Comparison: 11/16/2020 Bilateral Screening Mammogram, [facility]. 11/17/2021 Bilateral MG 3D screening mammo w/cad, [facility]. 11/21/2022 Bilateral MG 3D screening mammo w/cad, [facility]. Findings: The area of palpable concern of the left breast, the axilla of the left breast and the retroareolar of the left breast were scanned. Spiculated mass at the left 12:00 position 5 cm from the nipple measuring 1.3 x 1.0 x 1.1 cm. The findings are felt to reflect malignancy until proven otherwise. No evidence for left axillary adenopathy. Overall Assessment: Highly suggestive of malignancy, BI-RAD 5 Management: Ultrasound Core Biopsy of the left breast. A clinical breast exam by your physician is recommended on an annual basis and results should be correlated with mammographic findings. This exam should not preclude additional follow-up of suspicious palpable abnormalities. Results were given to the patient verbally at the time of exam. [facility], , 12/18/2023 11:14 AM. Electronically signed and approved by: Kane Schreiber M.D. Radiologis
== END | disposition home or self-care (01) ==
LOC: RADMAMWWP 10:36
PROVIDERS: ATTEND Internal Medicine
CPT/HCPCS: 77062; 77066

== ENCOUNTER → 2024-01-03 | Day surgery (SDC) | payer MEDICARE ==
--- NOTE | 2024-01-14 11:17 | MM ---
Reason for Exam: Post Procedure Mammogram. Last screening mammogram was performed less than 1 month ago. Patient History: Menarche at age 15. First Full-Term at age 24. Left ovary removed at age 52. Right ovary removed at age 52. Hysterectomy at age 47. Postmenopausal. Patient has history of breast feeding. Estrogen for 10 years, 3 months, from age 49 until age 59. Benign Excisional Biopsy on the right side. Risk Values: Anna 5 year model risk: 1.8%. NCI Lifetime model risk: 5.1%. Prior Study Comparison: 11/17/2021 Bilateral MG 3D screening mammo w/cad, [facility]. 11/21/2022 Bilateral MG 3D screening mammo w/cad, [facility]. 12/18/2023 Bilateral MG 3D diag mammo w/cad [facility], [facility]. Tissue Density: Left: The breasts are heterogeneously dense, which may obscure small masses. Pathology Description: Location: 12 o'clock. Marker Left Behind. Needle Type: Mammotome Cores: 5 Skin Nicks: 1 Gauge: 13 The procedure of ultrasound guided core biopsy was explained to the patient. Benefits, alternatives, and risks were discussed. An informed consent was then obtained. The patient was placed in supine positioning for imaging and for the procedure. The overlying skin was prepped and draped in usual sterile fashion. Lidocaine buffered with bicarbonate was used as anesthetic into the skin and subcutaneous tissue up to area of concern in the left breast. A celeste was made with surgical scalpel. Under ultrasound guidance, a 12-gauge vacuum assisted biopsy gun device was used to obtain 5 core samples. Following this, a biopsy clip was left in lesion. The patient tolerated the procedure well without any immediate complication. The patient was kept in the radiology department for short stay after the procedure and then discharged home in stable condition. Postprocedure mammogram: The patient was transferred to mammography for physician ordered post procedure mammogram for clip placement verification. Impression: Successful, uncomplicated ultrasound guided core biopsy of area of concern in the left breast 12:00 breast, full pathology results to follow. [facility], , 01/03/2024 2:08 PM The procedure of ultrasound guided core biopsy was explained to the patient. Benefits, alternatives, and risks were discussed. An informed consent was then obtained. The patient was placed in supine positioning for imaging and for the procedure. The overlying skin was prepped and draped in usual sterile fashion. Lidocaine buffered with bicarbonate was used as anesthetic into the skin and subcutaneous tissue up to area of concern in the left breast. A celeste was made with surgical scalpel. Under ultrasound guidance, a 12-gauge vacuum assisted biopsy gun device was used to obtain 5 core samples. Following this, a biopsy clip was left in lesion. The patient tolerated the procedure well without any immediate complication. The patient was kept in the radiology department for short stay after the procedure and then discharged home in stable condition. Postprocedure mammogram: The patient was transferred to mammography for physician ordered post procedure mammogram for clip placement verification. Impression: Successful, uncomplicated ultrasound guided core biopsy of area of concern in the left breast 12:00 breast, full pathology results to follow. [facility], , 01/03/2024 2:09 PM. Pathology Results: Result: Malignant, Invasive ductal carcinoma. Pathology and radiology were reviewed. Findings are concordant. LEFT BREAST, 12:00, ULTRASOUND GUIDED NEEDLE CORE BIOPSY: Invasive moderately differentiated ductal carcinoma (Grade 2). See Surgical Pathology Cancer Case Summary. Overall Assessment: Malignant Assessment: MG diagnostic mammo LT wo CAD. - Left: Known biopsy proven malignancy, BI-RAD 6. Management: Surgical Consultation of the left breast. Electronically signed and approved by: Ezequiel June DO
== END ==
LOC: RADUSWWP 12:31
PROVIDERS: ATTEND Internal Medicine
CPT/HCPCS: 77065; 88305; 88341; 88342

== ENCOUNTER → 2024-01-09 | Outpatient (CLI) | payer MEDICARE ==
--- NOTE | 2024-01-09 11:07 | XR ---
EXAMINATION TYPE: XR chest 2V DATE OF EXAM: 01/09/2024 COMPARISON: 12/13/2016 HISTORY: 73-year-old female C50.912, breast cancer TECHNIQUE: Frontal and lateral views FINDINGS: Heart normal size. Aorta and pulmonary vasculature within normal limits. No consolidation or pleural effusion. IMPRESSION: No acute cardiopulmonary process. [facility], , 01/09/2024 11:05 AM
== END | disposition home or self-care (01) ==
LOC: RADXRMAIN 10:28
PROVIDERS: ATTEND Internal Medicine
DX: C50.912 Malignant neoplasm of unspecified site of left female breast (principal)
CPT/HCPCS: 71046

== ENCOUNTER → 2024-01-16 | Outpatient (CLI) | payer MEDICARE ==
[2024-01-16 08:11] VITALS: BP 110/78; PULSE 79; RESP 16; TEMP 98.4
--- NOTE | 2024-01-16 08:56 | P.GSCN ---
History of Present Illness Consult date: 01/16/24 Reason for Consult: Biopsy-proven invasive ductal carcinoma left breast Requesting physician: Magdy Burgess History of present illness: Ashleigh is a 73-year-old white female seen in consultation for Dr. Arias regarding the left breast biopsy-proven invasive ductal carcinoma. This is ER/DC positive HER2 negative grade 2. She underwent a bilateral mammogram on 12-18-2023. This revealed a questionable spiculated lesion in the left breast no lesions of concern in the right breast. An ultrasound of the left breast was performed on the same date. This revealed a 1.3 x 1.1 cm lesion at the 12 o'clock position 5 cm from the nipple. An ultrasound-guided core biopsy was performed on 01-03-2024 which confirmed the diagnosis of invasive moderately differentiated ductal carcinoma. The patient herself could feel some nodularity in the left breast for approximately a week prior to her mammogram. She has never had any other surgery on her left breast. She did have a right breast biopsy in the past which was benign. She is not complaining of any other lumps masses or nodules of concern. She is not complaining of any trauma or infection in the breast. 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 This was treated with surgery alone. caffiene: 2 cups/day nicotine: none chocolate: dark chocolate several times a week BCP: for uterine bleeding for a short time hormone: estrogen for two years after oophrectomy Family History: father: bladder cancer asbestos Hormonal history: Menarche: 15 , breast fed: yes, age at first : 25 menopause: hysterectomy in her 40's, went back and had bilateral oophrectomy prior to 52 Surgical history: Right total knee Hysterectomy Bilateral oophorectomy Right breast biopsy left knee scoped lipoma left shoulder lasix surgery eyes right shoulder impengment left shoulder bone spurs carpel tunnel bilateral tirgger finger tonsil Medical History: Parkinson depression and anxiety arthritis sleep anpen HTN Social History: nicotine: none alcohol:none drugs: none Review of Systems - Constitutional Reports as per HPI - EENT Eyes: bilateral as per HPI, bilateral blurred vision (cataracts worse right) Ears: deny: decreased hearing, tinnitus Ears, nose, mouth and throat: Denies dysphagia - Breasts bilateral: as per HPI - Cardiovascular Denies chest pain, Denies shortness of breath - Respiratory Denies cough, Denies 7 - Gastrointestinal Reports as per HPI, Reports constipation - Genitourinary Genitourinary: Denies dysuria, Denies hematuria Menstruation: Reports post hysterectomy - Musculoskeletal Reports as per HPI - Integumentary Denies rash, Denies unusual bruising - Neurological Neurologic Comment(s): Parkinsons diagnosed 2014 - Psychiatric Reports anxiety, Reports depression - Endocrine Reports as per HPI - Hematologic/Lymphatic Reports as per HPI - Allergic/Immunologic Reports as per HPI Past Medical History Past Medical History: Hypertension, Sleep Apnea/CPAP/BIPAP Additional Past Medical History / Comment(s): parkinsons History of Any Multi-Drug Resistant Organisms: None Reported Past Surgical History: Hysterectomy, Joint Replacement Additional Past Surgical History / Comment(s): carpel tunnel. 2020 right knee replacement. Bilat rotator cuffvrepair Past Anesthesia/Blood Transfusion Reactions: Postoperative Nausea & Vomiting (PO NV) Past Psychological History: Anxiety, Depression Smoking Status: Never smoker Past Alcohol Use History: None Reported Past Drug Use History: None Reported - Past Family History Father Family Medical History: Dementia Medications and Allergies Home Medications Medication Instructions Recorded Confirmed Type Atorvastatin [Lipitor] 40 mg PO HS 10/03/15 01/16/24 History Carbidopa-Levodopa 25-100 mg 1 each PO TID 10/03/15 01/16/24 History [Sinemet 25-100] LORazepam [Ativan] 0.5 mg PO BID PRN 10/03/15 01/16/24 History Losartan Potassium [Cozaar] 100 mg PO DAILY 10/03/15 01/16/24 History Venlafaxine HCl ER [Effexor Xr] 225 mg PO QAM 10/03/15 01/16/24 History Cholecalciferol [Vitamin D3 (25 5,000 unit PO DAILY 12/09/19 01/16/24 History Mcg = 1000 Iu)] QUEtiapine [SEROquel] 200 mg PO HS 12/09/19 01/16/24 History Solifenacin Succinate [Vesicare] 5 mg PO BID 12/09/19 01/16/24 History Turmeric Root Extract [Turmeric] 500 mg PO HS 12/09/19 01/16/24 History Vitamin B Complex 1 each PO HS 12/09/19 01/16/24 History buPROPion HCL [Wellbutrin XL] 150 mg PO DAILY 12/09/19 01/16/24 History polyethylene glycoL 3350 [Miralax] 17 gm PO DAILY 12/09/19 01/16/24 History Aspirin [Adult Low Dose Aspirin EC] 81 mg PO BID #60 tablet. 12/12/19 01/16/24 Rx Melatonin [Melatonin ER] 10 mg PO HS 12/19/23 01/16/24 History amLODIPine [Norvasc] 2.5 mg PO DAILY 12/19/23 01/16/24 History Allergies Allergy/AdvReac Type Severity Reaction Status Date / Time erythromycin base Allergy Nausea & Verified 01/16/24 08:06 Vomiting hydrocodone [From Vicodin] Allergy Hallucinati Verified 01/16/24 08:06 ons codeine AdvReac upset Verified 01/16/24 08:06 stomach Surgical - Exam Vital Signs Temp Pulse Resp BP Pulse Ox 98.4 F 79 16 110/78 98 01/16/24 08:08 01/16/24 08:08 01/16/24 08:08 01/16/24 08:08 01/16/24 08:08 - General no distress - Eyes normal ocular movement - Neck trachea midline - Respiratory normal respiratory effort - Cardiovascular Rhythm: regular Heart Sounds: normal: S1, S2 - Abdomen Abdomen: soft, non tender, no guarding, no rigid, no rebound - Integumentary no rash, no abnormal pigmentation - Neurologic no disoriented, no combative - Musculoskeletal normal gait - Psychiatric oriented to time, oriented to person, oriented to place, speech is normal, memory intact Breast Exam: BRA: 42C Inspection: bilateral grade 3 ptosis Palpation: right breast: Multi positional exam no dominate masses or nodules of concern right axilla: No adenopathy of concern Left breast: Multi positional exam the 12 o'clock position there is approximately a 1.5 cm area of nodularity consistent with that which was biopsied No other dominant masses or nodules of concern Left axilla: No adenopathy of concern Results Bilateral mammogram from 12-18-2023 as well as diagnostic mammogram from 01-03-2024 personally reviewed and interpreted, ultrasound results left breast reviewed Assessment and Plan Assessment: Impression: 1. Parkinson's disease 2. Hypertension 3. Anxiety/depression 4. Stage I invasive ductal carcinoma left breast Plan: 1. Presentation of case at tumor board 2. Probable left breast needle localization lumpectomy, oncoplastic tissue transfer, mastopexy incision Risk and benefits of the procedure discussed with the patient. CC: Dr. Burgess
== END ==
LOC: WWCWWP 07:44
PROVIDERS: ATTEND Surgery
DX: C50.812 Malignant neoplasm of overlapping sites of left female breast (principal); G20.A1 Parkinson's disease without dyskinesia, without mention of fluctuations; I10 Essential (primary) hypertension; F41.9 Anxiety disorder, unspecified; F32.A Depression, unspecified; Z17.0 Estrogen receptor positive status [ER+]; Z88.5 Allergy status to narcotic agent; Z88.1 Allergy status to other antibiotic agents; Z79.899 Other long term (current) drug therapy

== ENCOUNTER → 2024-02-05 | Outpatient (CLI) | payer MEDICARE ==
--- NOTE | 2024-02-06 17:54 | CA ---
Transthoracic Echo Report Name: Ashleigh Cabrera Age: 73 Gender: F : 1950 Exam Date: 02/05/2024 13:54 Exam Location: [facility] Ht (in): 65 Wt (lb): 200 Ordering Physician: Magdy Burgess MD Attending/Referring Phys: Magdy Burgess MD Administrative Office Clerk Consuelo Villanueva CAMILLA Procedure CPT: Indications: I25.2 OLD MYOCARDIAL INFARCTION R94.31 ABN EKG Cardiac Hx: Technical Quality: Fair Contrast 1: Total Dose (mL): Contrast 2: Total Dose (mL): MEASUREMENTS (Male / Female) Normal Values 2D ECHO LV Diastolic Diameter PLAX 4.9 cm 4.2 - 5.9 / 3.9 - 5.3 cm LV Systolic Diameter PLAX 2.7 cm IVS Diastolic Thickness 1.2 cm 0.6 - 1.0 / 0.6 - 0.9 cm LVPW Diastolic Thickness 1.3 cm 0.6 - 1.0 / 0.6 - 0.9 cm LV Relative Wall Thickness 0.5 RV Internal Dim ED PLAX 1.8 cm LA Systolic Diameter LX 3.8 cm 3.0 - 4.0 / 2.7 - 3.8 cm LV Diastolic Volume MOD BP 38.5 cm??? 67 - 155 / 56 - 104 cm??? LV Systolic Volume MOD BP 16.4 cm??? 22 - 58 / 19 - 49 cm??? LV Ejection Fraction MOD BP 57.5 % >= 55 % LV Cardiac Index MOD BP 789.4 cm???/min???m??? LV Diastolic Volume MOD 4C 32.8 cm??? LV Systolic Volume MOD 4C 14.4 cm??? LV Ejection Fraction MOD 4C 55.9 % LV Cardiac Index MOD 4C 654.3 cm???/min???m??? LV Diastolic Length 4C 7.2 cm LV Systolic Length 4C 6.1 cm LV Diastolic Volume MOD 2C 45.6 cm??? LV Systolic Volume MOD 2C 16.3 cm??? LV Ejection Fraction MOD 2C 64.3 % LV Cardiac Index MOD 2C 1046.2 cm???/min???m??? LV Diastolic Length 2C 7.3 cm LV Systolic Length 2C 5.1 cm LA Volume 60.0 cm??? 18 - 58 / 22 - 52 cm??? LA Volume Index 28.9 cm???/m??? 16 - 28 cm???/m??? M-MODE Aortic Root Diameter MM 2.7 cm LA Systolic Diameter MM 3.7 cm LA Ao Ratio MM 1.4 AV Cusp Separation MM 1.5 cm DOPPLER AV Peak Velocity 187.2 cm/s AV Peak Gradient 14.0 mmHg MV Area PHT 2.4 cm??? Mitral E Point Velocity 73.9 cm/s Mitral A Point Velocity 98.2 cm/s Mitral E to A Ratio 0.8 MV Deceleration Time 311.6 ms FINDINGS Left Ventricle Left ventricular ejection fraction is estimated at 55-60%. Mildly increased septal wall thickness. Mildly increased posterior wall thickness. No obvious regional wall motion abnormalities. Left ventricular cavity size normal. Right Ventricle Normal right ventricular size and function. Right ventricular systolic pressure within normal limits. Right Atrium Normal right atrial size. Left Atrium Mildly increased left atrial volume. Mitral Valve Structurally normal mitral valve. Mitral annular calcification. Trace mitral regurgitation. Aortic Valve Trileaflet aortic valve. No aortic valve stenosis or regurgitation. Tricuspid Valve Structurally normal tricuspid valve. Trace tricuspid regurgitation. No tricuspid stenosis. Pulmonic Valve Structurally normal pulmonic valve. Trace pulmonic regurgitation.no pulmonic stenosis. Pericardium No pericardial or pleural effusion. Aorta Normal size aortic root and proximal ascending aorta. CONCLUSIONS Left ventricular ejection fraction is estimated at 55-60%. No obvious regional wall motion abnormalities. Normal RV size systolic function No significant valvular dysfunction Previewed by: Dr Davian Andrade (Electronically Signed) Final Date: 06 February 2024 17:53
== END | disposition home or self-care (01) ==
LOC: RADECHMAIN 13:50
PROVIDERS: ATTEND Internal Medicine
DX: I25.2 Old myocardial infarction (principal); R94.31 Abnormal electrocardiogram [ECG] [EKG]
CPT/HCPCS: 93306

== ENCOUNTER 2024-02-12 09:16 | Day surgery (SDC) | payer MEDICARE ==
[2024-02-08 14:44] VITALS: BMI 33.3
[~2024-02-12 09:16] MED LIST changes: -ACETAMINOPHEN TAB 500 MG TAB PO ONE; -GABAPENTIN 300 MG CAP PO ONE; -LACTATED RINGERS 1,000 ML IV SCH; -MELOXICAM 7.5 MG TAB PO ONE; +MIDAZOLAM 2 MG/2 ML VIAL IV PRN; -ONDANSETRON 4 MG/2 ML VIAL IVP ONE; -ONDANSETRON 4 MG/2 ML VIAL IVP PRN; -TRANEXAMIC ACID 1,000 MG in SODIUM CHLORIDE 0.9% 100 ML IVPB ONE; -VANCOMYCIN 1,250 MG in SODIUM CHLORIDE 0.9% 250 ML IVPB ONE; +fentaNYL (PF) 50 MCG/ML 2 ML AMP IVP PRN
[2024-02-12] MEDS: IV FLUID CONTINUATION 1,000 ML IV ONE (10:43)
[2024-02-12] MEDS: LACTATED RINGERS 1,000 ML IV SCH (10:46)
[2024-02-12] MEDS: ALPRAZolam 0.25 MG TAB PO STA (11:16)
[2024-02-12 11:50] VITALS: RESP 16
[2024-02-12] MEDS: LIDOCAINE 1% INJ 10MG/ML (20 ML MDV) SQ ONE ×4 (11:59→16:46)
[2024-02-12] MEDS: SODIUM BICARB 8.4% 50 ML VIAL (1 MEQ/ML) MISCELLANE ONE (11:59)
[2024-02-12] MEDS: ACETAMINOPHEN TAB 500 MG TAB PO PRN (12:44)
[2024-02-12] MEDS: DEXAMETHASONE SOD PHOSPHATE 4 MG/ML 1 ML VIAL IV ONE (12:45)
[2024-02-12] MEDS: ONDANSETRON 4 MG/2 ML VIAL IVP ONE (12:45)
[2024-02-12] MEDS: HEPARIN SODIUM,PORCINE 5,000 UNIT/ML 1 ML VIAL SQ PRN (12:45)
--- NOTE | 2024-02-12 14:09 | P.NAPBC ---
NAPBC Queries - NAPBC Queries Was patient's case review presented at [facility] tumor board? If no, comment.: Yes Was patient's pathology reviewed at [facility]? If no, comment.: Yes Was breast conservation surgery offered? If no, comment.: Yes Was sentinel node biopsy offered? If no, comment.: Yes Was diagnosis confirmed by percutaneous core biopsy? If no, comment.: Yes Is patient mastectomy patient?: No Was a preop referral to reconstructive surgeon offered?: No Clinical Stage: left breast stage I Invasive ductal cancer [id number]+Pr+Her2-G2
[2024-02-12] MEDS ORDERED: SUCCINYLCHOLINE CHLORIDE 200 MG/10 ML VIAL IV ONE (14:31)
[2024-02-12] MEDS ORDERED: PROPOFOL 10 MG/ML 20 ML VIAL IV ONE (14:31)
[2024-02-12] MEDS ORDERED: fentaNYL (PF) 50 MCG/ML 2 ML AMP ONE (14:31)
[2024-02-12] MEDS ORDERED: MIDAZOLAM 2 MG/2 ML VIAL ONE (14:31)
[2024-02-12] MEDS ORDERED: LIDOCAINE 1% INJ 10MG/ML (20 ML MDV) ONE (14:31)
[2024-02-12] MEDS ORDERED: ROCURONIUM 10 MG/ML (5 ML VIAL) IV ONE (14:31)
--- NOTE | 2024-02-12 14:40 | NM ---
EXAMINATION TYPE: NM sentinel node injection DATE OF EXAM: 02/12/2024 COMPARISON: NONE CLINICAL INDICATION: Female, 73 years old with history of C50.912 MALIGNANT NEOPLASM, OR ABNORMAL ROOPA WTH, LEFT BREAST; TECHNIQUE AND FINDINGS: The procedure of sentinel lymph node injection was explained to the patient. The benefits, alternatives, and risks were discussed. An informed consent was then obtained. Overlying skin is cleaned with sterile alcohol. Following this, 508 uCi Tc99m Tilmanocept was inject ed in the upper outer aspect of the left nipple intradermally. The patient tolerated the procedure well without any immediate complication. The patient was kept in the radiology department for short stay after the procedure and then taken to surgery for surgical p rocedure what is presumed intraoperative gamma probe will be used for sentinel lymph node detection. IMPRESSION: Left breast radiotracer injection for sentinel node localization as above. [facility], , 02/12/2024 2:38 PM
[2024-02-12] MEDS: LACTATED RINGERS 1,000 ML IV ONE (15:11)
--- NOTE | 2024-02-12 16:55 | P.BCAON ---
Date of Procedure: 02/12/24 Preoperative Diagnosis: Left breast invasive ductal carcinoma Postoperative Diagnosis: Same Procedure(s) Performed: Left breast lumpectomy with oncoplastic tissue transfer 63 cm, sentinel node biopsy Anesthesia: GILL Surgeon: Judy Wall Estimated Blood Loss (ml): 15 IV fluids (ml): 900 Pathology: other (Left breast tissue, axillary node contents) Condition: stable Indications for Procedure: Biopsy-proven left breast invasive ductal carcinoma Operative Findings: Dense breast tissue Description of Procedure: The patient is a 73-year-old white female with a biopsy-proven left breast invasive ductal carcinoma. She chose to have a left sentinel node biopsy, left lumpectomy via a mastopexy incision with oncoplastic tissue transfer. She was seen initially in the radiology department where needle localization of the area of concern was performed. Radiotracer was placed in the left periareolar area to travel to the left axilla. The patient was brought to the operative suite. Following induction of anesthesia the neoprobe was used to interrogate the axilla. Radioactivity was identified. The left breast and axilla were then prepped and draped in a sterile fashion. The axilla was approached initially. Using the neoprobe to identify the area of greatest radioactivity an incision was made. This was carried down into the area of the axilla. The tissue was grasped. The lymph nodes were resected. The 10-second count on the lymph node with greatest radioactivity was 22,747, a another lymph node had a 10-second count of 12,247, and the third lymph node had a count of 3424. No other radioactive or palpable lymph nodes were identified. The background 10-second count was 23. The wound was well irrigated. After we are sure that hemostasis was attained the deep tissues were closed using 3-0 Vicryl suture. Subcutaneous tissue was closed using 3-0 Vicryl suture. The skin was closed using 4-0 Monocryl. The area of the breast was approached. And is a D epithelialization and a crescent shape on over the left axilla was performed. Following this the breast parenchyma was entered. The markings for the mastopexy have been placed in the preoperative area. The dissection of the breast was carried down to the shaft of the needle. Surrounding tissue was excised. Wide excision around the shaft and tip of the needle was performed. The biopsy cavity was 6 x 3 cm. The specimen was painted for orientation. Radiograph revealed the clip and the lesion of concern were in the area of the specimen. Following this a additional anterior and lateral margin were obtained. The patient had medial and lateral pillars formed medial was 6 x 4 cm and lateral was 7 x 3 cm. The tissues were brought together to close the defect after we were assured that hemostasis was attained and Surgicel in powder form was placed. Additionally titanium clips were placed. The oncoplastic tissue transfer was 63 cm. The subcutaneous tissue was closed using interrupted 3-0 Vicryl sutures followed by running 3-0 Vicryl suture. The skin was closed using 4-0 Monocryl. The patient tolerated the procedure in stable condition. All instrument and sponge counts were correct at the end of the case. 10 cc of 1% lidocaine were injected into the incision at the end of the case. - Sentinal Node Biopsy Operation performed with curative intent: Yes Tracer(s) used in upfront surgery (non-neoadjuvant): radioactive tracer Tracer(s) used in the neoadjuvant setting: N/A All nodes present at end of dye-filled channel removed: N/A All significantly radioactive nodes were removed: Yes All palpably suspicious nodes were removed: Yes Clipped positive nodes identified and removed: N/A
[2024-02-12 17:19] VITALS: TEMP 98.2
[2024-02-12 18:01] VITALS: BP 133/66; PULSE 81
--- NOTE | 2024-02-18 13:42 | MM ---
Pathology Description: The procedure of needle localization with wire placement and than surgical excision was explained to the patient. Benefits, alternatives, and risks were discussed. An informed consent was then obtained. The shortest pathway for procedure was chosen. Shortest pathway was a superior approach. The overlying skin was prepped and draped in usual sterile fashion. Lidocaine buffered with bicarbonate was used as anesthetic into the skin and subcutaneous tissue up to the level of area of concern. A 7 cm Kopans needle was used. It was placed via a superior approach under mammographic guidance. Subsequent 90 degrees mammogram show the needle to be in satisfactory position relative to the targeted area. At this point, wire was placed and the needle was withdrawn. The wire was fixed to patient's skin. Images were marked for surgeon. The patient tolerated the procedure well without any immediate complication. The patient was kept in the radiology department for short stay after the procedure and then taken to surgery for surgical excision. Targeted mass and wire are identified in specimen mammogram. The microclip which was located just anterior to the mass is present within the container but displaced out of the specimen. The patient was kept in hospital for short stay after the procedure and then discharged home in stable condition. IMPRESSION: Successful, uncomplicated needle localization with wire placement and surgical excision of biopsy-proven left breast cancer; full pathology results to follow. [facility], , 02/12/2024 5:26 PM. Pathology Results: Result: Malignant, Invasive ductal carcinoma. Pathology and radiology were reviewed. Findings are concordant. A. LEFT BREAST TISSUE, LUMPECTOMY: Invasive ductal carcinoma, Grade 2 (see surgical pathology cancer case summary and comment). All margins negative for carcinoma with carcinoma measuring close to and less than 1 mm from the anterior margin. B. LYMPH NODE, LEFT SENTINEL #1, DISSECTION: One sentinel lymph node, negative for metastatic carcinoma (see comment after cancer protocol). C. LYMPH NODES, LEFT SENTINEL #2, DISSECTION: One of two sentinel lymph nodes positive for micrometastatic carcinoma (see comment after cancer protocol). D. LYMPH NODES, LEFT SENTINEL #3, DISSECTION: Two sentinel lymph nodes, each negative for metastatic carcinoma (see comment after cancer protocol). E. LEFT AXILLARY TISSUE, DISSECTION: Benign fibroadipose tissue with no lymphoid tissue identified. F. DE-EPITHELIALIZED TISSUE, LEFT BREAST: Benign breast skin with focal mild chronic inflammation. G. LEFT BREAST, NEW ANTERIOR MARGIN, EXCISION: Benign breast tissue with proliferative fibrocystic change with florid usual ductal hyperplasia and apocrine metaplasia. Benign small duct papilloma present. New anterior margin negative for in situ or invasive carcinoma (new anterior margin negative for malignancy). H. LEFT BREAST, NEW MEDIAL MARGIN, EXCISION: Benign breast tissue with proliferative fibrocystic change having apocrine metaplasia and florid usual ductal hyperplasia. Sclerosing adenosis with microcalcification. New medial margin negative for in situ or invasive carcinoma (new margin negative for malignancy). Overall Assessment: Malignant Management: Surgical Consultation of the left breast. Electronically signed and approved by: Florence Powers M.D. Radiologist
== END 2024-02-12 18:22 | disposition home or self-care (01) ==
LOC: OR 09:16
PROVIDERS: ATTEND Surgery
DX: C50.112 Malignant neoplasm of central portion of left female breast (principal); C77.3 Secondary and unspecified malignant neoplasm of axilla and upper limb lymph nodes; Z17.0 Estrogen receptor positive status [ER+]; Z17.21 Progesterone receptor positive status; Z17.32 Human epidermal growth factor receptor 2 negative status; I10 Essential (primary) hypertension; E78.00 Pure hypercholesterolemia, unspecified; G47.33 Obstructive sleep apnea (adult) (pediatric); G20.A1 Parkinson's disease without dyskinesia, without mention of fluctuations; N60.82 Other benign mammary dysplasias of left breast; N61.0 Mastitis without abscess; N60.12 Diffuse cystic mastopathy of left breast; D24.2 Benign neoplasm of left breast; N60.22 Fibroadenosis of left breast; M19.90 Unspecified osteoarthritis, unspecified site; F41.8 Other specified anxiety disorders; Z91.89 Other specified personal risk factors, not elsewhere classified; Z79.82 Long term (current) use of aspirin; Z79.899 Other long term (current) drug therapy; Z88.1 Allergy status to other antibiotic agents; Z88.5 Allergy status to narcotic agent
CPT/HCPCS: 76098; 19281; 38792; 19301; 14301; 14302 ×3; 38525; A9520; J2250; J0330; J1644; J1100; J0690; J2405; J2003; J3010; J2704; 88305; 88307; 88341; 88342

== ENCOUNTER → 2024-02-21 | Outpatient (CLI) | payer MEDICARE ==
[2024-02-21 14:09] VITALS: BP 125/85; PULSE 75; RESP 17; TEMP 98.3
--- NOTE | 2024-02-21 14:24 | P.BCPO ---
Progress Note - Text Progress Note Date: 02/21/24 Ashleigh is a 73 year old status post left breast lumpectomy and SNB on 02-12-24. Her pathology showed a 15 mm tumor invasive ductal cancer all margins (-). 5 nodes removed 1 with micromets. ER+Pr+Her2-G2. Lungs: clear Heart: Regular rate and rhythm Incision axilla and breast clean and dry Plan: Appointment medical oncology Appointment radiation oncology Follow-up here in 4 months Post Op Education - Post Op Education Post Op Education Provided Date: 02/21/24 - Functional Assessment Performed?: Yes (arm abduction passed) Path Report - Was patient given path report? Path Report Date Given: 02/21/24
== END ==
LOC: WWCWWP 13:38
PROVIDERS: ATTEND Surgery
DX: Z48.817 Encounter for surgical aftercare following surgery on the skin and subcutaneous tissue (principal); Z98.890 Other specified postprocedural states; Z85.3 Personal history of malignant neoplasm of breast; Z88.1 Allergy status to other antibiotic agents; Z88.5 Allergy status to narcotic agent

== ENCOUNTER → 2024-06-26 | Outpatient (CLI) | payer MEDICARE ==
[2024-06-26 13:23] VITALS: BP 137/83; PULSE 84; RESP 84; TEMP 98.2
--- NOTE | 2024-06-26 13:25 | P.PN ---
Subjective Progress Note Date: 06/26/24 History of Present Illness Consult date: 06-26-24 Reason for Consult: Biopsy-proven invasive ductal carcinoma left breast Requesting physician: Magdy Burgess History of present illness: Ashleigh is a 73-year-old white female seen in consultation for Dr. Arias regarding the left breast biopsy-proven invasive ductal carcinoma. This is ER/WA positive HER2 negative grade 2. She underwent a bilateral mammogram on 12-18-2023. This revealed a questionable spiculated lesion in the left breast no lesions of concern in the right breast. An ultrasound of the left breast was performed on the same date. This revealed a 1.3 x 1.1 cm lesion at the 12 o'clock position 5 cm from the nipple. An ultrasound-guided core biopsy was performed on 01-03-2024 which confirmed the diagnosis of invasive moderately differentiated ductal carcinoma. The patient herself could feel some nodularity in the left breast for approximately a week prior to her mammogram. She has never had any other surgery on her left breast. She did have a right breast biopsy in the past which was benign. She is not complaining of any other lumps masses or nodules of concern. She is not complaining of any trauma or infection in the breast. 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 This was treated with surgery alone. Case presented at tumor board and 01-22-2024. Agreement for needle localization lumpectomy of the left breast, oncoplastic tissue transfer, mastopexy incision, she is also going to have a left sentinel node injection, left sentinel node biopsy, possible left axillary node dissection I have discussed this with the patient and she wishes to proceed with the above procedure. 15 mm tumor all margins(-), 5 nodes removed [address] Marcos 02-21-24 reviewed oncotype recommended (told low) She had 20 radiation treatments; finished in Apr 2024; started on antihormone therapy annestrazole follow up with Dr. Marcos in 2 weeks caffiene: 2 cups/day nicotine: none chocolate: dark chocolate several times a week BCP: for uterine bleeding for a short time hormone: estrogen for two years after oophrectomy Family History: father: bladder cancer asbestos Hormonal history: Menarche: 15 , breast fed: yes, age at first : 25 menopause: hysterectomy in her 40's, went back and had bilateral oophrectomy prior to 52 Surgical history: Right total knee Hysterectomy Bilateral oophorectomy Right breast biopsy left knee scoped lipoma left shoulder lasix surgery eyes right shoulder impengment left shoulder bone spurs carpel tunnel bilateral tirgger finger tonsil Medical History: Parkinson depression and anxiety arthritis sleep anpen HTN Social History: nicotine: none alcohol:none drugs: none Review of Systems - Constitutional Reports as per HPI - EENT Eyes: bilateral as per HPI, bilateral blurred vision (cataracts worse right) Ears: deny: decreased hearing, tinnitus Ears, nose, mouth and throat: Denies dysphagia - Breasts bilateral: as per HPI - Cardiovascular Denies chest pain, Denies shortness of breath - Respiratory Denies cough - Gastrointestinal Reports as per HPI, Reports constipation - Genitourinary Genitourinary: Denies dysuria, Denies hematuria Menstruation: Reports post hysterectomy - Musculoskeletal Reports as per HPI - Integumentary Denies rash, Denies unusual bruising - Neurological Neurologic Comment(s): Parkinsons diagnosed 2014 - Psychiatric Reports anxiety, Reports depression - Endocrine Reports as per HPI - Hematologic/Lymphatic Reports as per HPI - Allergic/Immunologic Reports as per HPI Past Medical History Past Medical History: Hypertension, Sleep Apnea/CPAP/BIPAP Additional Past Medical History / Comment(s): parkinsons History of Any Multi-Drug Resistant Organisms: None Reported Past Surgical History: Hysterectomy, Joint Replacement Additional Past Surgical History / Comment(s): carpel tunnel. 2020 right knee replacement. Bilat rotator cuffvrepair Past Anesthesia/Blood Transfusion Reactions: Postoperative Nausea & Vomiting (PONV) Past Psychological History: Anxiety, Depression Smoking Status: Never smoker Past Alcohol Use History: None Reported Past Drug Use History: None Reported - Past Family History Father Family Medical History: Dementia Medications and Allergies Home Medications Medication Instructions Recorded Confirmed Type Atorvastatin [Lipitor] 40 mg PO HS 10/03/15 01/16/24 History Carbidopa-Levodopa 25-100 mg 1 each PO TID 10/03/15 01/16/24 History [Sinemet 25-100] LORazepam [Ativan] 0.5 mg PO BID PRN 10/03/15 01/16/24 History Losartan Potassium [Cozaar] 100 mg PO DAILY 10/03/15 01/16/24 History Venlafaxine HCl ER [Effexor Xr] 225 mg PO QAM 10/03/15 01/16/24 History Cholecalciferol [Vitamin D3 (25 5,000 unit PO DAILY 12/09/19 01/16/24 History Mcg = 1000 Iu)] QUEtiapine [SEROquel] 200 mg PO HS 12/09/19 01/16/24 History Solifenacin Succinate [Vesicare] 5 mg PO BID 12/09/19 01/16/24 History Turmeric Root Extract [Turmeric] 500 mg PO HS 12/09/19 01/16/24 History Vitamin B Complex 1 each PO HS 12/09/19 01/16/24 History buPROPion HCL [Wellbutrin XL] 150 mg PO DAILY 12/09/19 01/16/24 History polyethylene glycoL 3350 [Miralax] 17 gm PO DAILY 12/09/19 01/16/24 History Aspirin [Adult Low Dose Aspirin EC] 81 mg PO BID #60 tablet. 12/12/19 01/16/24 Rx Melatonin [Melatonin ER] 10 mg PO HS 12/19/23 01/16/24 History amLODIPine [Norvasc] 2.5 mg PO DAILY 12/19/23 01/16/24 History Allergies Allergy/AdvReac Type Severity Reaction Status Date / Time erythromycin base Allergy Nausea & Verified 01/16/24 08:06 Vomiting hydrocodone [From Vicodin] Allergy Hallucinati Verified 01/16/24 08:06 ons codeine AdvReac upset Verified 01/16/24 08:06 stomach Objective - Vital Signs Vital signs: Intake & Output 06/25/24 06/26/24 06/26/24 18:59 06:59 18:59 Weight 90.265 kg - Constitutional General appearance: Present: cooperative - EENT Eyes: Present: EOMI ENT: Present: hearing grossly normal - Neck Neck: Present: normal ROM - Respiratory Respiratory: bilateral: CTA - Cardiovascular Rhythm: regular Heart sounds: normal: S1, S2 - Integumentary Integumentary: Present: normal turgor - Psychiatric Psychiatric: Present: A&O x's 3, appropriate affect, intact judgment & insight - Additional findings Additional findings: Breast Exam: BRA: 42C Inspection: bilateral grade 3 ptosis Palpation: right breast: Multi positional exam no dominate masses or nodules of concern right axilla: No adenopathy of concern Left breast: Multi positional post surgical changes No other dominant masses or nodules of concern Left axilla: No adenopathy of concern Assessment and Plan Assessment: Impression: 1. Parkinson's disease 2. Hypertension 3. Anxiety/depression 4. Stage I invasive ductal carcinoma left breast Plan: 1. bilateral mammogram December 2025 with follow up 2. follow up medical oncology, on annestrazole 3. follow up radiation oncology 4. follow sooner if any concerns CC: Dr. Burgess
== END ==
LOC: WWCWWP 12:24
PROVIDERS: ATTEND Surgery
DX: C50.812 Malignant neoplasm of overlapping sites of left female breast (principal); G20.A1 Parkinson's disease without dyskinesia, without mention of fluctuations; I10 Essential (primary) hypertension; F32.A Depression, unspecified; F41.9 Anxiety disorder, unspecified; G47.30 Sleep apnea, unspecified; Z88.1 Allergy status to other antibiotic agents; Z88.5 Allergy status to narcotic agent